=== PATIENT | female | born 1985 | race Caucasian/White ===

== ENCOUNTER 2020-06-17 08:10 | Day surgery (SDC) | payer OTHER, SELFPAY ==
[2020-06-17] VITALS (8 sets, daily range): BP systolic 93–112; BP diastolic 62–73; PULSE 77–104; RESP 14–16; TEMP 36.2–36.7; O2SAT 92–95; BMI 26.9
--- NOTE | 2020-06-17 09:00 | RAD_ITS ---
PROCEDURE: Epidural pain pump insertion. DATE OF EXAMINATION: 06/17/2020. INDICATION: Female, 35 years old. Chronic back pain. FLUOROSCOPY TIME (if supplied): (17.8 seconds) minutes/seconds Intraoperative imaging provided for insertion of an epidural pain pump. One image was submitted. RAD/Spine 1 View Any Level IMPRESSION: Intraoperative fluoroscopic services provided for pain pump placement. Electronically Signed: Tyron Dumas, at 13:04 EDT , Service support ,
[2020-06-17 09:26] LABS: Bedside Glucose 114 mg/dL (70-110)
[2020-06-17] MEDS: Lactated Ringers 1,000 ML 100 ML IV (09:35)
[2020-06-17] MEDS: 0.9% Normal Saline (Pres. free 10 ML Vial (10:36)
[2020-06-17] MEDS: Bupiv/Epi 0.25% 30 ML Vial (11:00)
== END 2020-06-17 14:00 | disposition home or self-care (01) ==
LOC: SDC 08:11 → AC 08:13
PROVIDERS: Anesthesiology; PCP Family Medicine; Referring Provider Anesthesiology Pain Medicine; Visit Provider Anesthesiology Pain Medicine
PROC: (CPT 62322; principal; 2020-06-17 09:15)
DX: M54.9 Dorsalgia, unspecified (principal); G89.29 Other chronic pain; F17.210 Nicotine dependence, cigarettes, uncomplicated; G35 Multiple sclerosis; M62.838 Other muscle spasm; M51.36 Other intervertebral disc degeneration, lumbar region; M51.37 Other intervertebral disc degeneration, lumbosacral region
CPT/HCPCS: 62322; 72020; 76000; 82962; 87635; 94799; J7120; J0475; J2405; J3490; U0003

== ENCOUNTER → 2020-09-22 | Outpatient (CLI) | payer OTHER, SELFPAY ==
[2020-06-17 08:50] VITALS: BMI 26.9
== END | disposition home or self-care (01) ==
PROVIDERS: PCP Family Medicine; Referring Provider Anesthesiology Pain Medicine; Visit Provider Anesthesiology Pain Medicine
DX: G35 Multiple sclerosis (principal)
CPT/HCPCS: 83916; 87070; 87075; 87205

== ENCOUNTER 2020-10-07 10:31 | Day surgery (SDC) | payer OTHER, SELFPAY ==
[2020-06-17 08:50] VITALS: BMI 26.9
[2020-10-07] VITALS (7 sets, daily range): BP systolic 94–110; BP diastolic 62–72; PULSE 78–96; RESP 14–18; TEMP 36.3–36.6; O2SAT 93–96; BMI 27.6
[2020-10-07] MEDS: Lactated Ringers 1,000 ML 15 ML IV ×2 (11:13→14:47)
[2020-10-07 11:20] LABS: Bedside Glucose 105 mg/dL (70-110)
[2020-10-07 11:24] LABS: Internal QC Validated? YES +Cl - CLEAR BKGD
[2020-10-07 11:28] LABS: Pregnancy, Urine Negative Negative
--- NOTE | 2020-10-07 12:40 | RAD_ITS ---
STUDY: X-RAY - LUMBAR SPINE REASON FOR EXAM: Female, 35 years old. REMOVAL, PAIN PUMP. TECHNIQUE: 1 intraoperative view(s) of the lumbar spine were obtained. COMPARISON: None FINDINGS: Intraoperative imaging provided for removal of the pain pump. RAD/Spine 1 View Any Level IMPRESSION: Intraoperative imaging provided for removal of the pain pump. Electronically Signed: Tyron Dumas, at 15:33 EST , Service support ,
[2020-10-07] MEDS: Bupiv/Epi 0.25% 30 ML Vial (13:52)
== END 2020-10-07 15:48 | disposition home or self-care (01) ==
LOC: SDC 10:33 → AC 10:34
PROVIDERS: Anesthesiology; PCP Family Medicine; Referring Provider Anesthesiology Pain Medicine; Visit Provider Anesthesiology Pain Medicine
DX: T85.635A Leakage of other nervous system device, implant or graft, initial encounter (principal); G96.09 Other spinal cerebrospinal fluid leak; G35 Multiple sclerosis; M54.5 Low back pain; G89.29 Other chronic pain; E11.9 Type 2 diabetes mellitus without complications; E78.00 Pure hypercholesterolemia, unspecified; G25.81 Restless legs syndrome; N31.9 Neuromuscular dysfunction of bladder, unspecified; F41.9 Anxiety disorder, unspecified; F17.200 Nicotine dependence, unspecified, uncomplicated; Z79.4 Long term (current) use of insulin; Z96.41 Presence of insulin pump (external) (internal); Z79.899 Other long term (current) drug therapy; Z20.828 Contact with and (suspected) exposure to other viral communicable diseases
CPT/HCPCS: 00300; 62273; 62365; 77003; 72020; 76000; 81025; 82962; 87070; 87075; 87205; 87426; C9803; J7120; J2405; J3490

== ENCOUNTER → 2022-04-05 | Outpatient (CLI) | payer OTHER, SELFPAY ==
--- NOTE | 2022-04-05 15:50 | MRI_ITS ---
STUDY: MRI CERVICAL SPINE WITH AND WITHOUT CONTRAST REASON FOR EXAM: Female, 37 years old. MS TECHNIQUE: Standardized fat and water weighted pulse sequences were obtained in the sagittal and axial following administration of IV 12ml clariscan. COMPARISON: 04/13/2019. FINDINGS: Normal foramen magnum and brainstem-cervical cord junction. Normal craniovertebral junction. Normal anterior atlantoaxial articulation. Normal odontoid process. Normal cervical lordosis. No demonstrated fracture. C2-3: Normal disc height and morphology. Normal central canal. Foramina are patent. C3-4: Normal disc height and morphology. Normal central canal. Foramina are patent. C4-5: Normal disc height and morphology. Normal central canal. Foramina are patent. C5-6: Normal disc height and morphology. Normal central canal. Foramina are patent. C6-7: Normal disc height and morphology. Normal central canal. Foramina are patent. C7-T1: Normal disc height and morphology. Normal central canal. Foramina are patent. Normal cervical cord. No enhancing spinal lesion. Heterogeneous thyroid gland. MRI/Spine Cervical W/WO Contrast IMPRESSION: Normal unenhanced and enhanced MR of the cervical spine. Heterogeneous thyroid gland. Consider nonemergent thyroid ultrasound for further evaluation. Electronically Signed: Giselle Perry MD at 23:55 EDT Reading Location ID and State: [id number] / Tel , Service support ,
--- NOTE | 2022-04-05 15:50 | MRI_ITS ---
STUDY: MRI BRAIN WITH AND WITHOUT CONTRAST REASON FOR EXAM: Female, 37 years old. MS TECHNIQUE: Standardized multiplanar fat and water weighted pulse sequences were obtained. IV Yes YES was administered for the contrast portion of the examination. COMPARISON: 03/19/2019. FINDINGS: No intracranial mass, mass effect, or midline shift. No enhancing mass. No hemorrhage, territorial infarct or acute ischemia. There is mild cerebral atrophy with widening of the extra-axial spaces and ventricular dilatation. Limited number of T2 signal hyperintense foci in the white matter oriented perpendicular to the ventricles consistent with demyelinating plaques. No enhancing plaque. No change from the prior study. Normal bilateral basal ganglia. Normal thalami. There is no extra-axial fluid accumulation. Normal flow voids within the major intracranial circulation suggesting patency by spin echo criteria. There is no enhancing intra-axial or extra-axial abnormality. Normal sella turcica, pituitary gland, infundibular stalk, optic chiasm and hypothalamus. Normal tectal plate and pineal gland. Normal midbrain, kenyon and medulla. Normal cerebellum. Normal basal cisterns. Normal bilateral temporal bones. Normal bilateral internal auditory canals. Normal visualized paranasal sinuses. Normal calvarium and skull base. Normal visualized soft tissue structures. MRI/Brain W/WO Contrast IMPRESSION: Stable white matter plaques consistent with multiple sclerosis. No enhancement to indicate active lesion. Electronically Signed: Giselle Perry MD at 23:17 EDT Reading Location ID and State: [id number] / Tel , Service support ,
[2022-04-05 16:27] LABS: EGFR FINGERSTICK > 60 mL/min (>60)
== END | disposition home or self-care (01) ==
LOC: MRI 15:40
PROVIDERS: PCP Family Medicine
DX: G35 Multiple sclerosis (principal)
CPT/HCPCS: 70553; 72156; A9575

== ENCOUNTER → 2022-04-23 | Outpatient (CLI) | payer OTHER, SELFPAY ==
--- NOTE | 2022-04-23 13:12 | MRI_ITS ---
STUDY: MRI LUMBAR SPINE WITH AND WITHOUT CONTRAST REASON FOR EXAM: Female, 37 years old. DDD,lbp, bilat hip pain TECHNIQUE: Standardized fat and water weighted pulse sequences were obtained in the sagittal and axial planes. IV 12ml dotarem was administered for the contrast portion of the examination. COMPARISON: None FINDINGS: Limited view of the L3 vertebral body due to metallic induced artifact T12-L1: Normal endplates. Normal disc height, hydration and morphology. Normal bilateral facet joints. Normal central canal and bilateral lateral recesses. Normal bilateral intervertebral neural foramina. Normal lumbar lordosis. There is no substantial scoliosis. Normal conus medullaris that terminates at T12 L1-2: Normal endplates. Normal disc height, hydration and morphology. Normal bilateral facet joints. Normal central canal and bilateral lateral recesses. Normal bilateral intervertebral neural foramina. L2-3: Normal endplates. Normal disc height, hydration and morphology. Normal bilateral facet joints. Normal central canal and bilateral lateral recesses. Normal bilateral intervertebral neural foramina. L3-4: Normal endplates. Normal disc height, hydration and morphology. Normal bilateral facet joints. Normal central canal and bilateral lateral recesses. Normal bilateral intervertebral neural foramina. L4-5: Grade 1 retrolisthesis. Normal endplates. Normal disc height, hydration and minor bulging disc osteophyte complex.. Mild facet arthropathy.. Normal central canal and bilateral lateral recesses. Moderate bilateral neuroforaminal encroachment exaggerated by shortened pedicles. L5-S1: Normal endplates. Normal disc height, hydration and morphology. Normal bilateral facet joints. Normal central canal and bilateral lateral recesses. Normal bilateral intervertebral neural foramina. Normal visualized sacral ala. Normal visualized paraspinous soft tissue structures. No abnormal enhancement following contrast demonstration. MRI/Spine Lumbar W/WO Contrast IMPRESSION: Spinal stenosis at L4-5 secondary to disc disease and facet arthropathy exaggerated by shortened pedicles.. No enhancement to suggest acute osteomyelitis or discitis Electronically Signed: Rashaad Baldwin MD at 16:08 EDT ,
== END | disposition home or self-care (01) ==
PROVIDERS: PCP Family Medicine; Referring Provider Orthopaedic Surgery Orthopaedic Surgery of the Spine; Visit Provider Orthopaedic Surgery Orthopaedic Surgery of the Spine
DX: M51.36 Other intervertebral disc degeneration, lumbar region (principal); M46.96 Unspecified inflammatory spondylopathy, lumbar region; M48.061 Spinal stenosis, lumbar region without neurogenic claudication
CPT/HCPCS: 72158; A9575

== ENCOUNTER → 2023-08-05 | Outpatient (CLI) | payer BC, SELFPAY ==
--- NOTE | 2023-08-05 12:21 | MRI_ITS ---
STUDY: MRI BRAIN WITH AND WITHOUT CONTRAST REASON FOR EXAM: Female, 38 years old. MULTIPLE SCLEROSIS TECHNIQUE: Standardized multiplanar fat and water weighted pulse sequences were obtained. IV 11ml clariscan was administered for the contrast portion of the examination. COMPARISON: MRI April 05, 2022. FINDINGS: Normal size of the ventricles and extra-axial spaces for the patient''s age. There are a couple of periventricular white matter lesions bilaterally demonstrating configuration of Wallis''s fingers consistent with clinical history of multiple sclerosis.. Normal bilateral basal ganglia. Normal thalami. There is no extra-axial fluid accumulation. Normal flow voids within the major intracranial circulation suggesting patency by spin echo criteria. Normal venous enhancement. There is no enhancing intra-axial or extra-axial abnormality. Empty sella deformity of uncertain significance. Normal, infundibular stalk, optic chiasm and hypothalamus. Normal tectal plate and pineal gland. Normal midbrain, kenyon and medulla. Normal cerebellum. Normal basal cisterns. Normal bilateral temporal bones. Normal bilateral internal auditory canals. Postsurgical changes of the orbits. Mild mucosal thickening of the left maxillary sinus. Normal calvarium and skull base. Normal visualized soft tissue structures. Normal visualized upper cervical spine. Demyelinating plaque burden is stable since previous study. There is no enhancing plaque to suggest active demyelination MRI/Brain W/WO Contrast IMPRESSION: Findings consistent with mild multiple sclerosis stable since previous exam without evidence for active demyelination or other acute abnormality. Electronically Signed: Rashaad Baldwin MD at 17:06 EDT ,
--- NOTE | 2023-08-05 12:22 | MRI_ITS ---
STUDY: MRI CERVICAL SPINE WITH AND WITHOUT CONTRAST REASON FOR EXAM: Female, 38 years old. MULTIPLE SCLEROSIS TECHNIQUE: Standardized fat and water weighted pulse sequences were obtained in the sagittal and axial following administration of IV 11 clariscan. COMPARISON: MR cervical spine April 05, 2022 FINDINGS: Normal foramen magnum and brainstem-cervical cord junction. Normal craniovertebral junction. Normal anterior atlantoaxial articulation. Normal odontoid process. Normal cervical lordosis. Normal vertebral bodies and posterior osseous elements. C2-3: Normal endplates. Normal disc height, signal and morphology. Normal central canal and intervertebral neural foramina. C3-4: Normal endplates. Normal disc height, signal and morphology. Normal central canal and intervertebral neural foramina. C4-5: Normal endplates. Normal disc height, signal and morphology. Normal central canal and intervertebral neural foramina. C5-6: Normal endplates. Normal disc height, signal and morphology. Normal central canal and intervertebral neural foramina. C6-7: Normal endplates. Normal disc height, signal and morphology. Normal central canal and intervertebral neural foramina. C7-T1: Normal endplates. Normal disc height, signal and morphology. Normal central canal and intervertebral neural foramina. Normal cervical cord. Incidental finding of multinodular goiter No significant change since prior study MRI/Spine Cervical W/WO Contrast IMPRESSION: Normal unenhanced and enhanced MR examination of the cervical spine. Incidental finding of multinodular goiter which may be further assessed with thyroid sonography Electronically Signed: Rashaad Baldwin MD at 17:20 EDT ,
[2023-08-06 09:13] LABS: CREATININE FINGERSTICK < 0.9 mg/dL (0.55-1.02); EGFR FINGERSTICK > 60 mL/min (>60)
== END | disposition home or self-care (01) ==
PROVIDERS: PCP Family Medicine
DX: G35 Multiple sclerosis (principal)
CPT/HCPCS: 70553; 72156; A9575